=== PATIENT | female | born 1980 | race Caucasian/White ===

== ENCOUNTER 2017-04-21 13:28 | Emergency (ER) | payer MEDICAID ==
[~2017-04-21] VITALS: Ht 160 cm; Wt 92.0 kg
[~2017-04-21 13:28] MED LIST: SERT25TA PO
[2017-04-21 14:50] LABS: CLARITY URINE CLOUDY (CLEAR); COLOR URINE YELLOW (YELLOW); KETONES URINE NEGATIVE (NEGATIVE); LEUKOCYTE ESTERASE URINE 1+ (NEGATIVE); NITRITE URINE NEGATIVE (NEGATIVE); OCCULT BLOOD URINE TRACE (NEGATIVE); PH URINE 7.5 (4.5-8.0); PROTEIN URINE TRACE (NEGATIVE); UROBILINOGEN URINE 0.2 E.U./dL (0.2-1.0)
[2017-04-21] MEDS ORDERED: SODIUM CHLORIDE 0.9% 1,000 ML IV ONE (15:34)
[2017-04-21 16:03] LABS: BASOPHILS % 0.8 % (0.0-2.0); EOSINOPHILS % 2.1 % (0.0-5.0); HEMATOCRIT. 36.8 % (36.0-48.0); HEMOGLOBIN. 12.4 g/dL (12.0-16.0); MEAN CORPUSCULAR HEMOGLOBIN 27.1 pg (28.0-32.0); MEAN CORPUSCULAR VOLUME 80.7 fL (81.0-99.0); MEAN PLATELET VOLUME 9.2 fl (7.4-10.4); MONOCYTES % 6.2 % (2.0-8.0); NEUTROPHILS % 75.9 % (40.0-76.0); PLATELET 245 x1000/uL (130-400); RED BLOOD CELL COUNT 4.56 mill/uL (4.2-5.4)
[2017-04-21 16:14] LABS: CHLORIDE 104 mEq/L (98-107)
[2017-04-21 16:30] LABS: B-HCG QUANTITATIVE 27481 mIU/mL (<3)
[2017-04-21 19:49] VITALS: BP 115/54
== END 2017-04-21 21:12 | disposition home or self-care (01) ==
LOC: ER 13:28
DX: O26.892 Other specified pregnancy related conditions, second trimester (principal); J06.9 Acute upper respiratory infection, unspecified; O21.1 Hyperemesis gravidarum with metabolic disturbance; Z3A.15 15 weeks gestation of pregnancy; O09.522 Supervision of elderly multigravida, second trimester; J45.909 Unspecified asthma, uncomplicated; F41.9 Anxiety disorder, unspecified
CPT/HCPCS: 36415; 76805; 80053; 81001; 81025; 84702; 85025; 86850; 86870; 86900; 86901; 87804; 96360; 96361; 99285; J7030; Z7610

== ENCOUNTER 2020-01-26 01:17 | Emergency (ER) | payer MEDICAID ==
[~2020-01-26] VITALS: Ht 165.1 cm; Wt 81.0 kg
[2020-01-26] MEDS ORDERED: PREDNISONE 20MG TABLET PO STA (01:44)
[2020-01-26] MEDS ORDERED: IPRATROPIUM BROMIDE (0.02%) 0.5MG/2.5ML NEB HHN STA (01:44)
[2020-01-26] MEDS ORDERED: ALBUTEROL (0.083%) 2.5MG/3ML NEB HHN STA (01:44)
[2020-01-26] MEDS ORDERED: MAGNESIUM 2 G PREMIX 50 ML IV ONE (01:45)
[2020-01-26 04:23] VITALS: BP 163/99
== END 2020-01-26 04:25 | disposition home or self-care (01) ==
LOC: ER 01:17
DX: J45.901 Unspecified asthma with (acute) exacerbation (principal)
CPT/HCPCS: 93005; 94640; 96365; 99284; J3475; J7512; Z7610

== ENCOUNTER 2022-08-09 03:07 | Emergency (ER) | payer MEDICAID ==
[~2022-08-09] VITALS: Ht 165.1 cm; Wt 98.8 kg
[2022-08-09] MEDS ORDERED: IPRATROPIUM/ALBUTEROL 0.5-3(2.5)MG/3ML NEB HHN ONE (05:30)
[2022-08-09] MEDS ORDERED: PREDNISONE 20MG TABLET PO ONE (05:30)
[2022-08-09] MEDS ORDERED: P50 MT (06:20)
[2022-08-09] MEDS ORDERED: ALBU6.7H3 INH (06:41)
[2022-08-09 06:47] VITALS: BP 134/56
== END 2022-08-09 06:48 | disposition home or self-care (01) ==
LOC: ER 03:33
DX: J45.901 Unspecified asthma with (acute) exacerbation (principal)
CPT/HCPCS: 71045; 81025; 94640; 99283; J7512; Z7610